=== PATIENT | female | born 1945 | race Caucasian/White ===

== ENCOUNTER 2017-01-05 22:12 | Emergency (ER) | payer MEDICARE ==
[2017-01-05] MEDS ORDERED: ASPIRIN 81 MG TABLET, CHEWABLE PO ONE (22:16)
[2017-01-05 22:42] LABS: HEMATOCRIT 42.2 % (36.0-47.0); HEMOGLOBIN 13.5 g/dL (12.0-15.5); HGB HCT DIFFERENCE -1.7; MEAN CORPUSCULAR HEMOGLOBIN 30.5 pg (27.0-33.4); MEAN CORPUSCULAR HGB CONC 32.1 g/dL (32.0-36.0); MEAN CORPUSCULAR VOLUME 95 fl (80-97); RED BLOOD COUNT 4.44 10^6/uL (3.72-5.28); RED CELL DISTRIBUTION WIDTH 13.5 % (11.5-14.0); WHITE BLOOD COUNT 11.5 10^3/uL (4.0-10.5)
[2017-01-05 22:59] LABS: BASOPHILS % (MANUAL) 0 % (0-2); EOSINOPHILS % (MANUAL) 8 % (0-6); LYMPHOCYTES % (MANUAL) 33 % (13-45); TOTAL CELLS COUNTED 100
[2017-01-05 23:00] LABS: TOXIC GRANULATION SLIGHT; TOXIC VACUOLATION PRESENT
--- NOTE | 2017-01-05 23:19 | RADIOLOGY REPORT (SQ) ---
EXAM DESCRIPTION: CHEST SINGLE VIEW COMPLETED DATE/TIME: 01/05/2017 11:10 pm REASON FOR STUDY: chest pain COMPARISON: None. EXAM PARAMETERS: NUMBER OF VIEWS: One view. TECHNIQUE: Single frontal radiographic view of the chest acquired. RADIATION DOSE: NA LIMITATIONS: None. FINDINGS: LUNGS AND PLEURA: No opacities, masses or pneumothorax. No pleural effusion. Left midzone atelectasis. MEDIASTINUM AND HILAR STRUCTURES: No masses. Contour normal. HEART AND VASCULAR STRUCTURES: Heart normal in size. Normal vasculature. BONES: No acute findings. HARDWARE: None in the chest. OTHER: No other significant finding. IMPRESSION: Left midzone atelectasis. TECHNICAL DOCUMENTATION: JOB ID: [id number]
[2017-01-05] MEDS ORDERED: MORPHINE SULFATE 10 MG/ML INJ IV PRN (23:37)
[2017-01-05] MEDS ORDERED: KETOROLAC TROMETHAMINE INJ/PF 30 MG/1 ML SDV IV ONE (23:37)
--- NOTE | 2017-01-05 23:40 | ER Document Report ---
ED General - General Chief Complaint: Chest Pain Stated Complaint: PAIN ALL OVER Time Seen by Provider: 01/05/17 22:20 Notes: Patient is a 71-year-old female past medical history of hypertension, hyperlipidemia who presents with 12 hours of intermittent stabbing pain to the right side of her chest. Describes it as an intermittent, stabbing, severe pain when present. Nothing triggers the pain and it does resolve on its own. Denies any history of similar symptoms in the past. She has not seen her primary care doctor regarding today's concerns. Denies any associated nausea, vomiting, radiation of the pain into her arms, jaw or back. No dyspnea. Denies any hemoptysis. No use of estrogen. Denies any trauma to the area. - Related Data Allergies/Adverse Reactions: amoxicillin Allergy (Verified 01/05/17 23:19) codeine Allergy (Verified 01/05/17 23:19) Past Medical History - General Information source: Patient - Social History Smoking Status: Former Smoker Frequency of alcohol use: None Drug Abuse: None Lives with: Family Family History: Reviewed & Not Pertinent - Past Medical History Cardiac Medical History: Reports: Hx Hypertension Review of Systems - Review of Systems Notes: Constitutional: Negative for fever. HENT: Negative for sore throat. Eyes: Negative for visual changes. Cardiovascular: Positive for chest pain. Respiratory: Negative for shortness of breath. Gastrointestinal: Negative for abdominal pain, vomiting or diarrhea. Genitourinary: Negative for dysuria. Musculoskeletal: Negative for back pain. Skin: Negative for rash. Neurological: Negative for headaches, weakness or numbness. 10 point ROS negative except as marked above and in HPI. Physical Exam - Vital signs Vitals: Pulse Ox 98 01/05/17 22:17 Interpretation: Normal Notes: PHYSICAL EXAMINATION: GENERAL: Appears mildly uncomfortable but in no acute distress HEAD: Atraumatic, normocephalic. EYES: Pupils equal round and reactive to light, extraocular movements intact, sclera anicteric, conjunctiva are normal. ENT: nares patent, oropharynx clear without exudates. Moist mucous membranes. NECK: Normal range of motion, supple without lymphadenopathy LUNGS: Breath sounds clear to auscultation bilaterally and equal. No wheezes rales or rhonchi. HEART: Regular rate and rhythm without murmurs. 2+ radial pulses bilaterally. Blood pressures are symmetric bilaterally with 125 mmHg in the right and 127 mmHg in the left ABDOMEN: Soft, nontender, normoactive bowel sounds. No guarding, no rebound. No masses appreciated. EXTREMITIES: Normal range of motion, no pitting or edema. No cyanosis. NEUROLOGICAL: No focal neurological deficits. Moves all extremities spontaneously and on command. PSYCH: Normal mood, normal affect. SKIN: Warm, Dry, normal turgor, no rashes or lesions noted. Course - Re-evaluation Re-evalutation: 01/05/17 23:38 Presentation of chest pain in an otherwise well appearing patient. Low clinical suspicion for ACS given clinical history, exam, EKG without ST elevations or depressions, and negative initial troponin. HEART score less than or equal to 3. PE also seems unlikely given clinical history, absence of tachycardia or dyspnea. However, patient does have pleuritic pain on exam so will proceed with a d-dimer test using an age-adjusted criteria with a testing threshold of positivity of 0.69. CXR without evidence of pneumothorax or pneumonia. No widened mediastinum. Aortic dissection also seems unlikely given history, symmetric pulses, CXR, and vitals. Patient is also tender to the right upper quadrant which could also be a biliary pathology causing her pain so will also obtain a right upper quadrant ultrasound to further exclude. HEART Score: History:0 EC Age:1 Risk Factors:1 Troponin:0 Total: 2 01/06/17 02:18 D-dimer is negative. Right upper quadrant ultrasound is also negative for any evidence of acute cholecystitis. Patient chest pain is much improved. Final assessment: Chest pain in a patient without evidence of cardiac or other serious etiology on workup today. I discussed with patient that, based on their age, risk factors and emergency department testing today, the likelihood that their symptoms are related to a heart attack is very low (estimated risk of heart attack or over the next 30 days of less than 1%). The patient demonstrates decision making capacity and has verbalized an understanding of these risks to me. Based on this, the patient has chosen to follow-up as an outpatient. Usual chest pain return precautions reviewed. The patient states understanding and agreement with this plan. - Vital Signs Vital signs: Temp Pulse Resp BP Pulse Ox 19 123/69 95 01/06/17 01:45 01/06/17 01:01 01/06/17 01:45 - Laboratory Result Diagrams: 01/05/17 22:24 01/06/17 00:00 Laboratory results interpreted by me: 01/05/17 22:24 WBC 11.5 H Eosinophils % (Manual) 8 H Absolute Eos (Manual) 0.9 H - Diagnostic Test Radiology reviewed: Image reviewed, Reports reviewed Radiology results interpreted by me: 01/06/17 02:19 Chest x-ray: No acute infiltrate or pneumothorax - EKG Interpretation by Me Additional EKG results interpreted by me: 01/06/17 02:20 Normal sinus rhythm. Rate 66. No ST elevations or depressions. QTC is 441. Discharge - Discharge Clinical Impression: Chest pain Qualifiers: Chest pain type: unspecified Qualified Code(s): R07.9 - Chest pain, unspecified Condition: Good Disposition: HOME, SELF-CARE Additional Instructions: You were seen today for chest pain. The exact cause of your pain is unclear. However, based on your cardiac enzyme testing, chest x-ray, and EKG it does not appear that it is from an immediately life-threatening cause at this time. Although your testing here is normal is critical that you follow-up with your primary care physician for continued evaluation of this chest pain and possible stress testing. I recommended you see your physician within the next 24-48 hours to be evaluated for consideration of a stress test. Please return to emergency department immediately if you have worsening of your chest pain, shortness of breath, vomiting, become unable to exert yourself due to pain or difficulty breathing, you pass out, or have any pain that radiates into your arms, jaw, or back. Please also return if you have any additional symptoms that are concerning to you. Take ibuprofen 600 mg every 6 hours for pain. Apply heat to the area.
[2017-01-06 00:37] LABS: ALANINE AMINOTRANSFERASE 45 U/L (9-52); ALBUMIN 4.4 g/dL (3.5-5.0); ALKALINE PHOSPHATASE 99 U/L (38-126); ANION GAP 13 (5-19); ASPARTATE AMINO TRANSFERASE 28 U/L (14-36); BILIRUBIN,DIRECT 0.3 mg/dL (0.0-0.4); BILIRUBIN,TOTAL 0.5 mg/dL (0.2-1.3); BLOOD UREA NITROGEN 20 mg/dL (7-20); CARBON DIOXIDE 24 mmol/L (22-30); CHLORIDE 105 mmol/L (98-107); CREATININE RESULT 0.92 mg/dL (0.52-1.25); GLUCOSE 102 mg/dL (75-110); POTASSIUM 4.7 mmol/L (3.6-5.0); SODIUM 141.6 mmol/L (137-145); TOTAL PROTEIN 7.7 g/dL (6.3-8.2)
--- NOTE | 2017-01-06 01:21 | RADIOLOGY REPORT (SQ) ---
EXAM DESCRIPTION: U/S ABDOMEN LIMITED W/O DOP COMPLETED DATE/TIME: 01/06/2017 1:00 am REASON FOR STUDY: ruq pain COMPARISON: None. TECHNIQUE: Dynamic and static grayscale images acquired of the abdomen and recorded on PACS. Additio nal selected color Doppler and spectral images recorded. LIMITATIONS: Bowel gas. FINDINGS: PANCREAS: Obscured. LIVER: Hepatomegaly. 20.1 cm. Hepatic steatosis. LIVER VASCULATURE: Normal directional flow of the main portal vein and hepatic veins. GALLBLADDER: No stones. Normal wall thickness. No pericholecystic fluid. ULTRASOUND-DETECTED FUENTES'S SIGN: Negative. INTRAHEPATIC DUCTS AND COMMON DUCT: 0.7 cm diameter. CBD and intrahepatic ducts normal caliber. No f illing defects. INFERIOR VENA CAVA: Normal flow. AORTA: Partially obscured. RIGHT KIDNEY: Normal size. Normal echogenicity. No solid or suspicious masses. No hydronephrosis. No calcifications. PERITONEAL AND RIGHT PLEURAL SPACE: No ascites or effusions. OTHER: No other significant findings. IMPRESSION: No acute findings. Limitation. TECHNICAL DOCUMENTATION: JOB ID: [id number]- All Rights Reserved
[2017-01-06 03:00] VITALS: BP 117/65
--- NOTE | 2017-01-06 13:42 | EKG REPORT ---
SEVERITY:- ABNORMAL ECG - SINUS RHYTHM LEFT VENTRICULAR HYPERTROPHY : Confirmed by: Delfino Wetzel 06-Jan-2017 13:42:13
== END 2017-01-06 03:00 | disposition home or self-care (01) ==
LOC: ER 22:12
DX: R07.81 Pleurodynia (principal); I10 Essential (primary) hypertension; Z88.0 Allergy status to penicillin; Z88.5 Allergy status to narcotic agent; Z87.891 Personal history of nicotine dependence; R10.811 Right upper quadrant abdominal tenderness
CPT/HCPCS: 93005; 99285; 96374; 36415; 85025; 80053; 84484; 85379; 71010; 76705; 93010; J1885; J2270